=== PATIENT | female | born 1955 | race Caucasian/White ===

== ENCOUNTER → 2016-08-15 | Outpatient (CLI) | payer OTHER ==
--- NOTE | 2016-08-16 05:49 | REP ---
Clinical: Pain. Technique: Internal rotation, external rotation, and Y view. Findings: Degenerative changes include cortical irregularities and subtle spurring at the acromioclavicular joint level as well as very minimal cortical irregularity involving the greater tuberosity of the humeral head. No significant osteophytosis, periarticular calcifications, or subacromial joint space narrowing is appreciated. No acute or healed fracture. Impression: Mild arthritic degenerative changes. Signed by Larry Hurd MD 08/16/2016 05:40 A
== END ==
LOC: M CLY 14:52
PROVIDERS: ATTEND Nurse Practitioner
DX: M19.011 Primary osteoarthritis, right shoulder (principal); M25.511 Pain in right shoulder

== ENCOUNTER → 2016-08-23 | Outpatient (CLI) | payer OTHER ==
--- NOTE | 2016-08-23 17:03 | REPMRS ---
Patient History The patient states she has not had a clinical breast exam in over a year. Patient is postmenopausal. Family history of endometrial cancer in maternal aunt and breast cancer in maternal cousin under age 50. Digital Woman Screen Mammo: August 23, 2016 - Exam #: [id number] Bilateral CC and MLO view(s) were taken. Technologist: Patrizia Cruz, Technologist Prior study comparison: August 05, 2015, digital woman screen mammo performed at [facility]. May 15, 2014, digital woman screen mammo performed at [facility] to [facility]. FINDINGS: There are scattered fibroglandular densities. There has been no change in the appearance of the mammogram from the prior studies. There is a mild amount of scattered fibroglandular density which is fairly symmetric. There is no interval development of dominant mass, architectural distortion, or clustered microcalcification suggestive of malignancy. ASSESSMENT: BI-RADS/ACR category 1 mammogram. Negative. Recommendation Routine screening mammogram in 1 year (for women over age 40). This mammogram was interpreted with the aid of an FDA-approved computer-aided dectection system. Electronically Signed By: Gerry Curry MD 08/23/16 [id number]
== END ==
LOC: M WHC 13:50
PROVIDERS: ATTEND Nurse Practitioner
DX: Z12.31 Encounter for screening mammogram for malignant neoplasm of breast (principal); Z78.0 Asymptomatic menopausal state

== ENCOUNTER 2016-08-27 13:40 | Emergency (ER) | payer OTHER ==
[2016-08-27 15:19] LABS: BASO # 0.1 K/mm3 (0.0-0.2); BASO % 0.6 % (0.0-1.0); EOS # 0.1 K/mm3 (0.0-0.50); EOS % 0.5 % (0.0-3.0); LARGE UNSTAINED CELL # 0.1 K/mm3 (0.0-0.4); LARGE UNSTAINED CELL % 0.6 % (0.0-4.0); LYMPH # 1.2 K/mm3 (1.5-4.5); LYMPH % 7.4 % (24.0-44.0); MEAN CORPUSCULAR HGB CONC 33.8 g/dl (32.0-36.5); MEAN CORPUSCULAR VOLUME 82.9 fl (80.0-96.0); MONO # 0.4 K/mm3 (0.0-0.8); MONO % 2.9 % (0.0-5.0); NEUTROPHILS % 87.9 % (36.0-66.0); PLATELET COUNT, AUTOMATED 321 k/mm3 (150-450); RED CELL DISTRIBUTION WIDTH 12.7 % (11.5-14.5); WHITE BLOOD COUNT 14.7 K/mm3 (4.0-10.0)
[2016-08-27 15:29] LABS: ALBUMIN 3.8 GM/DL (3.2-5.2); ALBUMIN/GLOBULIN RATIO 1.19 (1.00-1.93); ANION GAP 7 MEQ/L (8-16); BILIRUBIN,DIRECT 0.3 MG/DL (0.0-0.2); BILIRUBIN,TOTAL 0.5 MG/DL (0.2-1.0); BLOOD UREA NITROGEN 14 MG/DL (7-18); CALCIUM LEVEL 8.8 MG/DL (8.5-10.1); CARBON DIOXIDE LEVEL 30 MEQ/L (21-32); CHLORIDE LEVEL 104 MEQ/L (98-107); CREATININE FOR GFR 1.07 MG/DL (0.55-1.02); GLOMERULAR FILTRATION RATE 55.9 (>51); GLUCOSE, FASTING 118 MG/DL (70-105); SODIUM LEVEL 141 MEQ/L (136-145)
[2016-08-27 15:36] LABS: INR 0.91
--- NOTE | 2016-08-27 15:53 | ECGEPIP ---
Stationary ECG Study [facility] - ED Test Date: 2016-08-27 Pat Name: AUTUMN FERRIS Department: Room: - Gender: F [employer]: rn : 1955 Requested By: JAY Marin Order Number: [id number] Reading MD: Manju Self Measurements Intervals [place] Rate: 94 P: 43 GA: 150 QRS: -1 QRSD: 93 T: 44 QT: 364 QTc: 457 Interpretive Statements SINUS RHYTHM NONSPECIFIC ST & T-WAVE ABNORMALITY NO PRIOR FOR COMPARISON Electronically Signed On 08-27-2016 15:52:39 EST by Manju Self
--- NOTE | 2016-08-27 19:10 | EDDOCDS ---
Physician Documentation [facility] Name: Margarita Benites Age: 61 yrs Sex: Female : 1955 Arrival Date: 08/27/2016 Time: 13:40 Bed 6 Private MD: Disposition: 08/27/16 18:46 Discharged to Home/Self Care. Impression: Chest pain, unspecified. - Condition is Stable. - Discharge Instructions: Nonspecific Chest Pain. - Prescriptions for Aspirin 81 mg - take 1 tablet by ORAL route once daily; 90 tablet. - Medication Reconciliation, Local Pharmacy Hours form. - Follow up: Dmitriy Del Rosario MD; When: Call to arrange an appointment; Reason: Further diagnostic work-up, Recheck today's complaints, Continuance of care. Follow up: Private Physician; When: 4 - 5 days; Reason: Recheck today's complaints, Continuance of care. - Problem is new. - Symptoms are unchanged. Historical: - Allergies: no known allergies; - Home Meds: 1. PreserVision AREDS 2 [id number]-mg oral cap daily - PMHx: none; - PSHx: ; Appendectomy; - Social history: No barriers to communication noted, The patient speaks fluent Italian, Speaks appropriately for age, Smoking status: Patient states former smoker of tobacco. - Family history: Not pertinent. - : The pt / caregiver states he / she is not on anticoagulants. Home medication list is obtained from the patient. - Exposure Risk Screening:: None identified. Vital Signs: 08/27 13:50 BP 158 / 77 (auto/); ead 13:52 Pulse 104 MON; Pulse Ox 94% on R/A; ead 14:20 BP 144 / 67 (auto/); ttb 14:21 Pulse 94 MON; Pulse Ox 94% ; ttb 14:35 Pulse 90 MON; Pulse Ox 95% ; ttb 14:35 BP 138 / 65 (auto/); ttb 14:50 Pulse 96 MON; Pulse Ox 97% ; ttb 14:50 BP 172 / 70 (auto/); ttb 15:05 BP 128 / 58 (auto/); ttb 15:05 Pulse 86 MON; Resp 18; Pulse Ox 97% on R/A; Pain 1/10; ttb 15:10 Temp 98.1(TE); Weight 89.81 kg / 198 lbs; Height 5 ft. 2 in. (157.48 cm); ttb 16:20 Pulse 84 MON; Pulse Ox 97% ; ttb 16:20 BP 142 / 68 (auto/); ttb 16:35 Pulse 86 MON; Pulse Ox 96% ; ttb 16:35 BP 134 / 61 (auto/); ttb 16:50 Pulse 66 MON; Pulse Ox 97% ; ttb 16:50 BP 151 / 65 (auto/); ttb 17:04 Pulse 66 MON; Pulse Ox 98% ; ttb 17:05 BP 127 / 65 (auto/); ttb 17:20 BP 135 / 73 (auto/); ttb 17:21 Pulse 76 MON; Pulse Ox 96% ; ttb 17:35 BP 138 / 71 (auto/); ttb 17:36 Pulse 80 MON; Pulse Ox 95% ; ttb 17:50 BP 125 / 72 (auto/); ttb 17:50 Pulse 78 MON; Pulse Ox 96% ; ttb 18:05 BP 122 / 70 (auto/); ttb 18:06 Pulse 78 MON; Pulse Ox 96% ; ttb 18:19 Pulse 60 MON; Pulse Ox 97% ; ttb 18:20 BP 150 / 72 (auto/); ttb 18:35 Pulse 66 MON; Pulse Ox 98% ; ttb 18:35 BP 138 / 63 (auto/); ttb 18:49 Pulse 80 MON; Resp 18 S; Temp 98.1(TE); Pulse Ox 98% on R/A; Pain 0/10; ttb 18:50 BP 146 / 70 (auto/); ttb 15:10 Body Mass Index 36.21 (89.81 kg, 157.48 cm) ttb MDM: 13:45 ECG WITH READING ER PHYS+CARDIAG ordered. EDMS 14:58 NS 0.9% 1000 ml IV at 100 mL/hr continuous ordered. ke 14:58 [employer] Roofing Estimator/Pulse Ox/q 30 min VS ordered. ke 14:58 IV Saline Lock ordered. ke 14:58 Rhythm Strip to chart ordered. ke 14:58 Undress patient appropriately for examination ordered. ke 14:59 portable chest Ordered. EDMS 14:59 Basic Metabolic Profile Ordered. EDMS 14:59 CBC with Diff Ordered. EDMS 14:59 Cardiac Injury Profile Ordered. EDMS 15:00 Prothrombin Time Profile\E\INR Ordered. EDMS 15:00 Troponin Ordered. EDMS 15:00 Lipase Ordered. EDMS 15:00 Amylase Ordered. EDMS 15:00 Liver Profile Ordered. EDMS 15:43 Basic Metabolic Profile Reviewed. ke 15:43 CBC with Diff Reviewed. ke 15:43 Liver Profile Reviewed. ke 15:43 Cardiac Injury Profile Reviewed. ke 15:43 Prothrombin Time Profile\E\INR Reviewed. ke 15:43 Troponin Reviewed. ke 15:43 Lipase Reviewed. ke 15:43 Amylase Reviewed. ke 15:44 Redraw CIP &Troponin (put time in details section) ordered. ke 15:44 Repeat EKG (put time details section) ordered. ke 15:46 Redraw CIP &Troponin (put time in details section) complete. deg 15:46 Repeat EKG (put time details section) complete. deg 15:47 ECG WITH READING ER PHYS ordered. EDMS 15:47 CARDIAC MARKER PANEL Ordered. EDMS 16:40 Financial registration complete. zo 17:22 [facility] Payment Agreement was scanned into [employer] and attached to record. zo 18:42 CARDIAC MARKER PANEL Reviewed. ke 18:42 EKG-ADULT Reviewed. ke Administered Medications: 15:08 Drug: NS 0.9% 1000 ml [sodium chloride 0.9 % intravenous solution] Route: IV; Rate: 100 ttb mL/hr; Site: left antecubital; 18:00 Follow up: Response: No Adverse Reaction; IV Status: Completed infusion; IV Intake: ttb 1000ml Signatures: Dispatcher [employer] EDSamantha Olsen, Mold Parter Unit deg Wild Flores FNP FNP ke Olin, Zoeann zo Conner, Teresa RN RN Betsy Montanez,RN RN macho The chart was reviewed and I authenticate all verbal orders and agree with the evaluation and treatment provided.Attachments: 17:22 [facility] Payment Agreement zo [id number]
--- NOTE | 2016-08-27 19:10 | EDDOCDS ---
Nurse's Notes [facility] Name: Margarita Benites Age: 61 yrs Sex: Female : 1955 Arrival Date: 08/27/2016 Time: 13:40 Bed 6 Private MD: Diagnosis: Chest pain, unspecified Presentation: 08/27 13:44 Presenting complaint: EMS states: pt c/o chest pain since 11 this morning. EMS gave 1 ead SL nitiro en route, pt reports relief. Pt also reports epigastric pain after eating soto this morning. Pt arrives on non-rebreather, pt was 100% on 02. Pt received 324 mg aspirin per EMS. Aspirin was taken DATA LIBRARIAN. Transition of care: Patient was received from [facility]. 13:44 Acuity: MARYSE Level 3 ead 13:44 Method Of Arrival: Ambulance ead 13:44 Presenting complaint: EMS states: pt has 20 gauge IV to left AC. Blood glucose of 136. ead Care prior to arrival: See EMS report. 13:50 Adult Sepsis Screening: Suicide/Homicide risk assessment- the patient denies having any ead suicidal and/or homicidal ideations and does not present with any other emotional, behavioral or mental health complaints. 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 13:55 Adult Sepsis Screening: The patient does not have new or worsening altered mentation. ead Patient's respiratory rate is less than 22. Systolic blood pressure is greater than 100. Patient has a qSOFA score of 0- Negative Sepsis Screen. Triage Assessment: 13:50 General: Appears in no apparent distress, well nourished, well groomed, Behavior is ead anxious, appropriate for age, cooperative. Pain: Location: chest Pain currently is 1 out of 10 on a pain scale. At worst was 10 out of 10 on a pain scale. The patient is triaged at the bedside. See Assessment in Nurses Notes section of ED record. Neurological: Level of Consciousness is awake, alert, Oriented to person, place, time. Neurological: Reports dizziness. Cardiovascular: Chest pain is described as Pain is 1 out of 10 on a pain scale. radiates Does not radiate. episodes are continuous began 3 hours prior to arrival. Respiratory: Reports shortness of breath. GI: Reports epigastric pain, Denies nausea, vomiting. Derm: Skin is pink, warm & dry. 19:08 HIV screening NA for this visit Offered previously. ttb Historical: - Allergies: no known allergies; - Home Meds: 1. PreserVision AREDS 2 [id number] yy-tvxj-dt-mg oral cap daily - PMHx: none; - PSHx: ; Appendectomy; - Social history: No barriers to communication noted, The patient speaks fluent Guyanese, Speaks appropriately for age, Smoking status: Patient states former smoker of tobacco. - Family history: Not pertinent. - : The pt / caregiver states he / she is not on anticoagulants. Home medication list is obtained from the patient. - Exposure Risk Screening:: None identified. Screenin:53 Screening information is obtained from the patient. Fall risk: No risks identified. ead Assistance ADL's: requires no assistance with activities of daily living. Abuse/DV Screen: The patient / caregiver reports he/she is: not in a situation that causes fear, pain or injury. Nutritional screening: No deficits noted. Advance Directives: Currently, there is no health care proxy. There is no active DNR order. There is no living will. There is no Power of Treatment Plant Operator. home support is adequate. Assessment: 14:45 General: Appears in no apparent distress, comfortable, Behavior is appropriate for age, ttb cooperative, pleasant. Pain: Location: mid chest 1/10 Pain does not radiate. Neurological: Level of Consciousness is awake, alert, Oriented to person, place, time, Speech is normal, Facial symmetry appears normal. Cardiovascular: Heart tones S1 S2 present Rhythm is sinus rhythm Chest pain is described as mild. Respiratory: No deficits noted. Airway is patent Respiratory effort is even, unlabored, Breath sounds are clear bilaterally. Denies cough, shortness of breath. GI: Denies nausea, vomiting, pain. Derm: Skin is normal. Injury Description: No known injury. 15:45 Reassessment: Patient appears in no apparent distress at this time. Patient denies pain ttb at this time. Patient states feeling better. Patient states symptoms have improved. pt resting on stretcher. Family at bedside.. Cardiovascular: Rhythm is sinus rhythm Chest pain is denied. 16:45 Reassessment: Patient appears in no apparent distress at this time. Patient denies pain ttb at this time. Patient states feeling better. Patient states symptoms have improved. pt resting on stretcher.. Adult Sepsis Screening: The patient does not have new or worsening altered mentation. Patient's respiratory rate is less than 22. Systolic blood pressure is greater than 100. Patient has a qSOFA score of 0- Negative Sepsis Screen. Neurological: Level of Consciousness is awake, alert. Cardiovascular: Rhythm is sinus rhythm. Respiratory: No deficits noted. Airway is patent Respiratory effort is even, unlabored. 17:45 Reassessment: Patient appears in no apparent distress at this time. Patient denies pain ttb at this time. Patient states feeling better. Patient states symptoms have improved. pt continues to rest on stretcher. Pt to be redrawn at 1800.. Neurological: Level of Consciousness is awake, alert. Cardiovascular: Rhythm is sinus rhythm Chest pain is denied. Respiratory: Airway is patent. GI: Denies nausea, vomiting. 18:45 Reassessment: Patient appears in no apparent distress at this time. Patient denies pain ttb at this time. Patient states feeling better. Patient states symptoms have improved. pt states she is ready for DC. NAD noted. Pt aware of impending discharge. SR on monitor. 18:45 Adult Sepsis Screening: The patient does not have new or worsening altered mentation. ttb Patient's respiratory rate is less than 22. Systolic blood pressure is greater than 100. Patient has a qSOFA score of 0- Negative Sepsis Screen. Cardiovascular: Rhythm is sinus rhythm Chest pain is denied. Respiratory: Airway is patent Respiratory effort is even, unlabored, Denies cough, shortness of breath. GI: Denies nausea, vomiting. 19:00 General: pt given DC instructions and is ready for discharge at this time.. ttb 19:00 Cardiovascular: Chest pain is denied. Respiratory: Airway is patent Respiratory effort ttb is even, unlabored. Vital Signs: 13:50 BP 158 / 77 (auto/); ead 13:52 Pulse 104 MON; Pulse Ox 94% on R/A; ead 14:20 BP 144 / 67 (auto/); ttb 14:21 Pulse 94 MON; Pulse Ox 94% ; ttb 14:35 Pulse 90 MON; Pulse Ox 95% ; ttb 14:35 BP 138 / 65 (auto/); ttb 14:50 Pulse 96 MON; Pulse Ox 97% ; ttb 14:50 BP 172 / 70 (auto/); ttb 15:05 BP 128 / 58 (auto/); ttb 15:05 Pulse 86 MON; Resp 18; Pulse Ox 97% on R/A; Pain 1/10; ttb 15:10 Temp 98.1(TE); Weight 89.81 kg; Height 5 ft. 2 in. (157.48 cm); ttb 16:20 Pulse 84 MON; Pulse Ox 97% ; ttb 16:20 BP 142 / 68 (auto/); ttb 16:35 Pulse 86 MON; Pulse Ox 96% ; ttb 16:35 BP 134 / 61 (auto/); ttb 16:50 Pulse 66 MON; Pulse Ox 97% ; ttb 16:50 BP 151 / 65 (auto/); ttb 17:04 Pulse 66 MON; Pulse Ox 98% ; ttb 17:05 BP 127 / 65 (auto/); ttb 17:20 BP 135 / 73 (auto/); ttb 17:21 Pulse 76 MON; Pulse Ox 96% ; ttb 17:35 BP 138 / 71 (auto/); ttb 17:36 Pulse 80 MON; Pulse Ox 95% ; ttb 17:50 BP 125 / 72 (auto/); ttb 17:50 Pulse 78 MON; Pulse Ox 96% ; ttb 18:05 BP 122 / 70 (auto/); ttb 18:06 Pulse 78 MON; Pulse Ox 96% ; ttb 18:19 Pulse 60 MON; Pulse Ox 97% ; ttb 18:20 BP 150 / 72 (auto/); ttb 18:35 Pulse 66 MON; Pulse Ox 98% ; ttb 18:35 BP 138 / 63 (auto/); ttb 18:49 Pulse 80 MON; Resp 18 S; Temp 98.1(TE); Pulse Ox 98% on R/A; Pain 0/10; ttb 18:50 BP 146 / 70 (auto/); ttb 15:10 Body Mass Index 36.21 (89.81 kg, 157.48 cm) ttb Vitals: 13:40 Log In Time N/A - ambulance arrival. ead ED Course: 13:41 Patient visited by Samantha Cota, Housing Relocation. deg 13:41 Patient moved to Waiting deg 13:42 Eva Cason,RN is Primary Nurse. deg 13:42 Patient moved to 6 deg 13:48 Triage Initiated ead 13:53 The patient / caregiver is instructed regarding the plan of care and ED course. Cardiac ead monitor on. Pulse ox on. NIBP on. 13:55 Patient visited by Betsy Chappell RN. ead 13:59 EKG done. (by ED staff). Reviewed by Lia Garcias MD. rn1 14:37 Wild Flores FNP is PHCP. ke 14:37 Patient visited by Wild Flores FNP. ke 14:37 Patient visited by Wild Flores FNP. ke 15:05 Accompanied by Family Member, Patient has correct armband on for positive ttb identification. Placed in gown. Bed in low position. Call light in reach. Side rails up X2. bus monitor on. Pulse ox on. NIBP on. 15:05 Maintain field IV. Dressing intact. Good blood return noted. Site clean & dry. Gauge & ttb site: 20LAC. Labs drawn. (by ED staff). 15:11 Patient visited by Tammi Barillas RN. ttb 15:42 Patient visited by Wild Flores FNP. ke 15:58 Primary Nurse role handed off by Eva Cason RN deg 16:04 EKG-ADULT Returned. EDMS 16:08 Patient visited by Wild Flores FNP. ke 16:44 Patient visited by Wild Flores FNP. ke 17:15 Patient visited by Wild Flores FNP. ke 17:22 [facility] Payment Agreement was scanned into [employer] and attached to record. zo 17:47 Patient visited by Wild Flores FNP. ke 18:01 CARDIAC MARKER PANEL Sent. ttb 18:16 Patient visited by Pratibha Verdin RN. kc3 18:19 EKG done. (by ED staff). Reviewed by Wild SIMPSON. rn1 18:42 Patient visited by Wild Flores FNP. ke 18:45 Dmitriy Del Rosario MD is Referral Physician. ke 19:00 Discontinued IV lock intact, bleeding controlled, pressure dressing applied, No ttb redness/swelling at site. No procedures done that require assistance. 19:04 Patient visited by Fernadno Souza PCA. kb5 Administered Medications: 15:08 Drug: NS 0.9% 1000 ml [sodium chloride 0.9 % intravenous solution] Route: IV; Rate: 100 ttb mL/hr; Site: left antecubital; 18:00 Follow up: Response: No Adverse Reaction; IV Status: Completed infusion; IV Intake: ttb 1000ml Intake: 18:00 IV: 1000.00ml; Total: 1000.00ml. ttb Order Results: Lab Order: Basic Metabolic Profile; SPEC'M 08/27/16 13:53 Test: GLUCOSE, FASTING; Value: 118; Range: 70-105; Abnormal: Above high normal; Units: MG/DL; Status: F Test: BLOOD UREA NITROGEN; Value: 14; Range: 7-18; Units: MG/DL; Status: F Test: CREATININE FOR GFR; Value: 1.07; Range: 0.55-1.02; Abnormal: Above high normal; Units: MG/DL; Status: F Test: GLOMERULAR FILTRATION RATE; Value: 55.9; Range: >51; Status: F Test: SODIUM LEVEL; Value: 141; Range: 136-145; Units: MEQ/L; Status: F Test: POTASSIUM SERUM; Value: 4.0; Range: 3.5-5.1; Units: MEQ/L; Status: F Test: CHLORIDE LEVEL; Value: 104; Range: 98-107; Units: MEQ/L; Status: F Test: CARBON DIOXIDE LEVEL; Value: 30; Range: 21-32; Units: MEQ/L; Status: F Test: ANION GAP; Value: 7; Range: 8-16; Abnormal: Below low normal; Units: MEQ/L; Status: F Test: CALCIUM LEVEL; Value: 8.8; Range: 8.5-10.1; Units: MG/DL; Status: F Test Note: ; Units are mL/min/1.73 m2 Chronic Kidney Disease Staging per NKF: Stage I & II GFR >=60 Normal to Mildly Decreased Stage III GFR 30-59 Moderately Decreased Stage IV GFR 15-29 Severely Decreased Stage V GFR <15 Very Little GFR Left ESRD GFR <15 on [employer] WRAPPER Lab Order: CBC with Diff; SPEC'M 08/27/16 13:53 Test: WHITE BLOOD COUNT; Value: 14.7; Range: 4.0-10.0; Abnormal: Above high normal; Units: K/mm3; Status: F Test: RED BLOOD COUNT; Value: 5.14; Range: 4.00-5.40; Units: M/mm3; Status: F Test: HEMOGLOBIN; Value: 14.4; Range: 12.0-16.0; Units: g/dl; Status: F Test: HEMATOCRIT; Value: 42.6; Range: 36.0-47.0; Units: %; Status: F Test: MEAN CORPUSCULAR VOLUME; Value: 82.9; Range: 80.0-96.0; Units: fl; Status: F Test: MEAN CORPUSCULAR HEMOGLOBIN; Value: 28.0; Range: 27.0-33.0; Units: pg; Status: F Test: MEAN CORPUSCULAR HGB CONC; Value: 33.8; Range: 32.0-36.5; Units: g/dl; Status: F Test: RED CELL DISTRIBUTION WIDTH; Value: 12.7; Range: 11.5-14.5; Units: %; Status: F Test: PLATELET COUNT, AUTOMATED; Value: 321; Range: 150-450; Units: k/mm3; Status: F Test: NEUTROPHILS %; Value: 87.9; Range: 36.0-66.0; Abnormal: Above high normal; Units: %; Status: F Test: LYMPH %; Value: 7.4; Range: 24.0-44.0; Abnormal: Below low normal; Units: %; Status: F Test: MONO %; Value: 2.9; Range: 0.0-5.0; Units: %; Status: F Test: EOS %; Value: 0.5; Range: 0.0-3.0; Units: %; Status: F Test: BASO %; Value: 0.6; Range: 0.0-1.0; Units: %; Status: F Test: LARGE UNSTAINED CELL %; Value: 0.6; Range: 0.0-4.0; Units: %; Status: F Test: NEUTROPHILS #; Value: 13.0; Range: 1.8-7.7; Abnormal: Above high normal; Units: K/mm3; Status: F Test: LYMPH #; Value: 1.2; Range: 1.5-4.5; Abnormal: Below low normal; Units: K/mm3; Status: F Test: MONO #; Value: 0.4; Range: 0.0-0.8; Units: K/mm3; Status: F Test: EOS #; Value: 0.1; Range: 0.0-0.50; Units: K/mm3; Status: F Test: BASO #; Value: 0.1; Range: 0.0-0.2; Units: K/mm3; Status: F Test: LARGE UNSTAINED CELL #; Value: 0.1; Range: 0.0-0.4; Units: K/mm3; Status: F Lab Order: Cardiac Injury Profile; [facility] 08/27/16 13:53 Test: CPK CREATINE PHOSPHOKINASE; Value: 57; Range: 26-192; Units: U/L; Status: F Test: CK-MB VALUE MASS; Value: 1.0; Range: 0.0-3.6; Units: NG/ML; Status: F Test: MB/CK RELATIVE INDEX; Value: 1.75; Range: < OR =4; Status: F Test Note: ; DIAGNOSIS CRITERIA MMB ng/ml Relative Index (RI) NON-AMI < or = 5 N/A BROOKS ZONE > 5 < or = 4 AMI > 5 > 4 Lab Order: Prothrombin Time Profile\E\INR; [facility] 13:53 Test: PROTHROMBIN TIME; Value: 12.4; Range: 12.3-14.5; Units: SECONDS; Status: F Test: INR; Value: 0.91; Status: F Test Note: ; THERAPUTIC HUMAN INR VALUES INDICATIONS NORMAL RANGES PROPHYLAXIS/TREATMENT OF: VENOUS THROMBOSIS 2.0-3.0 PULMONARY EMBOLISM 2.0-3.0 PREVENTION OF SYSTEMIC EMBOLISM FROM: TISSUE HEART VALVES 2.0-3.0 ACUTE MYOCARDIAL INFARCTION 2.0-3.0 VALVULAR HEART DISEASE 2.0-3.0 ATRIAL FIBRILLATION 2.0-3.0 MECHANICAL VALVES(HIGH RISK) 2.5-3.5 RECURRENT MYOCARDIAL INFARCTION 2.5-3.5 Lab Order: Troponin; [facility] 08/27/16 13:53 Test: TROPONIN I; Value: < 0.02; Range: < 0.10; Units: NG/ML; Status: F Test Note: ; Troponin I Reference Interval for Win[employer] LOCI: 99th Percentile= 0.00-0.045 ng/ml Risk Stratification: <= 0.10 ng/ml Decreased Risk for Adverse Clinical Events. 0.10-1.50 ng/ml Increased Risk for Adverse Clinical Events. Evaluation of additional criterion and/or repeat testing in 2-6 hours is suggested to rule out myocardial damage. >= 1.50 ng/ml Indicative of Myocardial Injury. Lab Order: Lipase; [facility] 08/27/16 13:53 Test: LIPASE; Value: 164; Range: 73-393; Units: U/L; Status: F Lab Order: Amylase; [facility] 08/27/16 13:53 Test: AMYLASE; Value: 71; Range: 25-115; Units: U/L; Status: F Lab Order: Liver Profile; [facility] 08/27/16 13:53 Test: AST/SGOT; Value: 96; Range: 15-37; Abnormal: Above high normal; Units: U/L; Status: F Test: ALT/SGPT; Value: 59; Range: 12-78; Units: U/L; Status: F Test: ALKALINE PHOSPHATASE; Value: 74; Range: 45-117; Units: U/L; Status: F Test: BILIRUBIN,TOTAL; Value: 0.5; Range: 0.2-1.0; Units: MG/DL; Status: F Test: BILIRUBIN,DIRECT; Value: 0.3; Range: 0.0-0.2; Abnormal: Above high normal; Units: MG/DL; Status: F Test: TOTAL PROTEIN; Value: 7.0; Range: 6.4-8.2; Units: GM/DL; Status: F Test: ALBUMIN; Value: 3.8; Range: 3.2-5.2; Units: GM/DL; Status: F Test: ALBUMIN/GLOBULIN RATIO; Value: 1.19; Range: 1.00-1.93; Status: F Lab Order: CARDIAC MARKER PANEL; [facility] 08/27/16 17:55 Test: CPK CREATINE PHOSPHOKINASE; Value: 61; Range: 26-192; Units: U/L; Status: F Test: CK-MB VALUE MASS; Value: 1.0; Range: 0.0-3.6; Units: NG/ML; Status: F Test: MB/CK RELATIVE INDEX; Value: 1.63; Range: < OR =4; Status: F Test: TROPONIN I; Value: < 0.02; Range: < 0.10; Units: NG/ML; Status: F Test Note: ; DIAGNOSIS CRITERIA MMB ng/ml Relative Index (RI) NON-AMI < or = 5 N/A BROOKS ZONE > 5 < or = 4 AMI > 5 > 4 Radiology Order: EKG-ADULT Test: EKG-ADULT REASON FOR EXAMINATION: Chest Pain; Stationary ECG Study; [facility] - ED; ; Test Date: 2016-08-27; Pat Name: MARGARITA BENITES Department:; Room: -; Gender: F Wearing Apparel Assembler: rn; : 1955 Requested By: LIA Marin; Order Number: [id number] Reading MD: Manju Self; Measurements; Intervals [place]; Rate: 94 P: 43; [place]: 150 QRS: -1; QRSD: 93 T: 44; QT: 364; QTc: 457; Interpretive Statements; SINUS RHYTHM; NONSPECIFIC ST T-WAVE ABNORMALITY; NO PRIOR FOR COMPARISON; Electronically Signed On 08-27-2016 15:52:39 EST by Manju Self; Outcome: 18:46 Discharge ordered by Provider. ke 19:00 Discharge Assessment: Patient awake, alert and oriented x 3. No cognitive and/or ttb functional deficits noted. Patient verbalized understanding of disposition instructions. Patient awake and alert. patient administered narcotics - no. The following High Risk Discharge criteria are identified: None. Discharged to home ambulatory, with family. Condition: good Condition: stable Condition: improved. Discharge instructions given to patient, family, Instructed on discharge instructions, follow up and referral plans. medication usage, Demonstrated understanding of instructions, medications, Pt was receptive of discharge instructions/ teaching. Prescriptions given X 1. No special radiology studies were completed. Property :Personal belongings accompany Pt. 19:08 Patient left the ED. ttb Signatures: Dispatcher [employer] EDSamantha Olsen, Housing Relocation Unit deg Wild Flores, COAL SCREENER COAL SCREENER Nora Pratt Kristopher, CITY ENGINEER CITY ENGINEER kb5 Tammi Barillas RN RN Betsy Montanez,MIGUE RN ead Lobito Wilson rn1 Pratibha Verdin,MIGUE RN kc3 IDALIA
--- NOTE | 2016-08-28 11:24 | REP ---
Portable chest, single AP view: The lung becerra are clear. The cardiac size is normal The ayala, mediastinum, and bony thorax are unremarkable. Impression: Negative portable chest. Signed by Reji Brunson MD 08/27/2016 03:25 P
--- NOTE | 2016-08-28 20:46 | ECGEPIP ---
Stationary ECG Study [facility] - ED Test Date: 2016-08-27 Pat Name: AUTUMN FERRIS Department: Room: - Gender: F Tree Driller: jeovany : 1955 Requested By: RHINA SIMSPON Order Number: [id number] Reading MD: Manju Self Measurements Intervals [place] Rate: 65 P: 1 IN: 148 QRS: 3 QRSD: 90 T: 18 QT: 416 QTc: 434 Interpretive Statements SINUS RHYTHM NSTTW ABNORMALITY DECREASED RATE 08/27/16 13:57 Electronically Signed On 08-28-2016 20:46:09 EST by Manju Self
--- NOTE | 2016-08-29 20:10 | EDDOCDS ---
Physician Documentation [facility] Name: Margarita Benites Age: 61 yrs Sex: Female : 1955 Arrival Date: 08/27/2016 Time: 13:40 Bed 6 Private MD: Disposition: 08/27/16 18:46 Discharged to Home/Self Care. Impression: Chest pain, unspecified. - Condition is Stable. - Discharge Instructions: Nonspecific Chest Pain. - Prescriptions for Aspirin 81 mg - take 1 tablet by ORAL route once daily; 90 tablet. - Medication Reconciliation, Local Pharmacy Hours form. - Follow up: Dmitriy Del Rosario MD; When: Call to arrange an appointment; Reason: Further diagnostic work-up, Recheck today's complaints, Continuance of care. Follow up: Private Physician; When: 4 - 5 days; Reason: Recheck today's complaints, Continuance of care. - Problem is new. - Symptoms are unchanged. Historical: - Allergies: no known allergies; - Home Meds: 1. PreserVision AREDS 2 [id number] on-izun-ga-mg oral cap daily - PMHx: none; - PSHx: ; Appendectomy; - Social history: No barriers to communication noted, The patient speaks fluent Swedish, Speaks appropriately for age, Smoking status: Patient states former smoker of tobacco. - Family history: Not pertinent. - : The pt / caregiver states he / she is not on anticoagulants. Home medication list is obtained from the patient. - Exposure Risk Screening:: None identified. Vital Signs: 08/27 13:50 BP 158 / 77 (auto/); ead 13:52 Pulse 104 MON; Pulse Ox 94% on R/A; ead 14:20 BP 144 / 67 (auto/); ttb 14:21 Pulse 94 MON; Pulse Ox 94% ; ttb 14:35 Pulse 90 MON; Pulse Ox 95% ; ttb 14:35 BP 138 / 65 (auto/); ttb 14:50 Pulse 96 MON; Pulse Ox 97% ; ttb 14:50 BP 172 / 70 (auto/); ttb 15:05 BP 128 / 58 (auto/); ttb 15:05 Pulse 86 MON; Resp 18; Pulse Ox 97% on R/A; Pain 1/10; ttb 15:10 Temp 98.1(TE); Weight 89.81 kg / 198 lbs; Height 5 ft. 2 in. (157.48 cm); ttb 16:20 Pulse 84 MON; Pulse Ox 97% ; ttb 16:20 BP 142 / 68 (auto/); ttb 16:35 Pulse 86 MON; Pulse Ox 96% ; ttb 16:35 BP 134 / 61 (auto/); ttb 16:50 Pulse 66 MON; Pulse Ox 97% ; ttb 16:50 BP 151 / 65 (auto/); ttb 17:04 Pulse 66 MON; Pulse Ox 98% ; ttb 17:05 BP 127 / 65 (auto/); ttb 17:20 BP 135 / 73 (auto/); ttb 17:21 Pulse 76 MON; Pulse Ox 96% ; ttb 17:35 BP 138 / 71 (auto/); ttb 17:36 Pulse 80 MON; Pulse Ox 95% ; ttb 17:50 BP 125 / 72 (auto/); ttb 17:50 Pulse 78 MON; Pulse Ox 96% ; ttb 18:05 BP 122 / 70 (auto/); ttb 18:06 Pulse 78 MON; Pulse Ox 96% ; ttb 18:19 Pulse 60 MON; Pulse Ox 97% ; ttb 18:20 BP 150 / 72 (auto/); ttb 18:35 Pulse 66 MON; Pulse Ox 98% ; ttb 18:35 BP 138 / 63 (auto/); ttb 18:49 Pulse 80 MON; Resp 18 S; Temp 98.1(TE); Pulse Ox 98% on R/A; Pain 0/10; ttb 18:50 BP 146 / 70 (auto/); ttb 15:10 Body Mass Index 36.21 (89.81 kg, 157.48 cm) ttb MDM: 13:45 ECG WITH READING ER PHYS+CARDIAG ordered. EDMS 14:58 NS 0.9% 1000 ml IV at 100 mL/hr continuous ordered. ke 14:58 Client Services Associate/Pulse Ox/q 30 min VS ordered. ke 14:58 IV Saline Lock ordered. ke 14:58 Rhythm Strip to chart ordered. ke 14:58 Undress patient appropriately for examination ordered. ke 14:59 portable chest Ordered. EDMS 14:59 Basic Metabolic Profile Ordered. EDMS 14:59 CBC with Diff Ordered. EDMS 14:59 Cardiac Injury Profile Ordered. EDMS 15:00 Prothrombin Time Profile\E\INR Ordered. EDMS 15:00 Troponin Ordered. EDMS 15:00 Lipase Ordered. EDMS 15:00 Amylase Ordered. EDMS 15:00 Liver Profile Ordered. EDMS 15:43 Basic Metabolic Profile Reviewed. ke 15:43 CBC with Diff Reviewed. ke 15:43 Liver Profile Reviewed. ke 15:43 Cardiac Injury Profile Reviewed. ke 15:43 Prothrombin Time Profile\E\INR Reviewed. ke 15:43 Troponin Reviewed. ke 15:43 Lipase Reviewed. ke 15:43 Amylase Reviewed. ke 15:44 Redraw CIP &Troponin (put time in details section) ordered. ke 15:44 Repeat EKG (put time details section) ordered. ke 15:46 Redraw CIP &Troponin (put time in details section) complete. deg 15:46 Repeat EKG (put time details section) complete. deg 15:47 ECG WITH READING ER PHYS ordered. EDMS 15:47 CARDIAC MARKER PANEL Ordered. EDMS 16:40 Financial registration complete. zo 17:22 [facility] Payment Agreement was scanned into [employer] and attached to record. zo 18:42 CARDIAC MARKER PANEL Reviewed. ke 18:42 EKG-ADULT Reviewed. ke 08/28 11:12 T-Sheet-- Draft Copy was scanned into [employer] and attached to record. gb 11:12 ECG/EKG was scanned into [employer] and attached to record. gb 11:13 Trend VS was scanned into [employer] and attached to record. gb 11:13 Rhythm Strip was scanned into [employer] and attached to record. gb Administered Medications: 08/27 15:08 Drug: NS 0.9% 1000 ml [sodium chloride 0.9 % intravenous solution] Route: IV; Rate: 100 ttb mL/hr; Site: left antecubital; 18:00 Follow up: Response: No Adverse Reaction; IV Status: Completed infusion; IV Intake: ttb 1000ml Signatures: Dispatcher [employer] EDSamantha Olsen, Flash Welder Unit deg Joy Angelo, Reg Reg gb Wild Flores, A AND P MECHANIC A AND P MECHANIC Nora Pratt Teresa, RN RN ttb [place], EmilyRN RN macho The chart was reviewed and I authenticate all verbal orders and agree with the evaluation and treatment provided.Attachments: 17: [facility] Payment Agreement zo 08/28 11:12 T-Sheet-- Draft Copy gb 11:12 ECG/EKG gb Chart Complete MTDD
--- NOTE | 2016-08-29 20:10 | EDDOCDS ---
Physician Documentation [facility] Name: Margarita Benites Age: 61 yrs Sex: Female : 1955 Arrival Date: 08/27/2016 Time: 13:40 Bed 6 Private MD: Disposition: 08/27/16 18:46 Discharged to Home/Self Care. Impression: Chest pain, unspecified. - Condition is Stable. - Discharge Instructions: Nonspecific Chest Pain. - Prescriptions for Aspirin 81 mg - take 1 tablet by ORAL route once daily; 90 tablet. - Medication Reconciliation, Local Pharmacy Hours form. - Follow up: Dmitriy Del Rosario MD; When: Call to arrange an appointment; Reason: Further diagnostic work-up, Recheck today's complaints, Continuance of care. Follow up: Private Physician; When: 4 - 5 days; Reason: Recheck today's complaints, Continuance of care. - Problem is new. - Symptoms are unchanged. Historical: - Allergies: no known allergies; - Home Meds: 1. PreserVision AREDS 2 [id number] [id number] oral cap daily - PMHx: none; - PSHx: ; Appendectomy; - Social history: No barriers to communication noted, The patient speaks fluent Amharic, Speaks appropriately for age, Smoking status: Patient states former smoker of tobacco. - Family history: Not pertinent. - : The pt / caregiver states he / she is not on anticoagulants. Home medication list is obtained from the patient. - Exposure Risk Screening:: None identified. Vital Signs: 08/27 13:50 BP 158 / 77 (auto/); ead 13:52 Pulse 104 MON; Pulse Ox 94% on R/A; ead 14:20 BP 144 / 67 (auto/); ttb 14:21 Pulse 94 MON; Pulse Ox 94% ; ttb 14:35 Pulse 90 MON; Pulse Ox 95% ; ttb 14:35 BP 138 / 65 (auto/); ttb 14:50 Pulse 96 MON; Pulse Ox 97% ; ttb 14:50 BP 172 / 70 (auto/); ttb 15:05 BP 128 / 58 (auto/); ttb 15:05 Pulse 86 MON; Resp 18; Pulse Ox 97% on R/A; Pain 1/10; ttb 15:10 Temp 98.1(TE); Weight 89.81 kg / 198 lbs; Height 5 ft. 2 in. (157.48 cm); ttb 16:20 Pulse 84 MON; Pulse Ox 97% ; ttb 16:20 BP 142 / 68 (auto/); ttb 16:35 Pulse 86 MON; Pulse Ox 96% ; ttb 16:35 BP 134 / 61 (auto/); ttb 16:50 Pulse 66 MON; Pulse Ox 97% ; ttb 16:50 BP 151 / 65 (auto/); ttb 17:04 Pulse 66 MON; Pulse Ox 98% ; ttb 17:05 BP 127 / 65 (auto/); ttb 17:20 BP 135 / 73 (auto/); ttb 17:21 Pulse 76 MON; Pulse Ox 96% ; ttb 17:35 BP 138 / 71 (auto/); ttb 17:36 Pulse 80 MON; Pulse Ox 95% ; ttb 17:50 BP 125 / 72 (auto/); ttb 17:50 Pulse 78 MON; Pulse Ox 96% ; ttb 18:05 BP 122 / 70 (auto/); ttb 18:06 Pulse 78 MON; Pulse Ox 96% ; ttb 18:19 Pulse 60 MON; Pulse Ox 97% ; ttb 18:20 BP 150 / 72 (auto/); ttb 18:35 Pulse 66 MON; Pulse Ox 98% ; ttb 18:35 BP 138 / 63 (auto/); ttb 18:49 Pulse 80 MON; Resp 18 S; Temp 98.1(TE); Pulse Ox 98% on R/A; Pain 0/10; ttb 18:50 BP 146 / 70 (auto/); ttb 15:10 Body Mass Index 36.21 (89.81 kg, 157.48 cm) ttb MDM: 13:45 ECG WITH READING ER PHYS+CARDIAG ordered. EDMS 14:58 NS 0.9% 1000 ml IV at 100 mL/hr continuous ordered. ke 14:58 Bee Tender/Pulse Ox/q 30 min VS ordered. ke 14:58 IV Saline Lock ordered. ke 14:58 Rhythm Strip to chart ordered. ke 14:58 Undress patient appropriately for examination ordered. ke 14:59 portable chest Ordered. EDMS 14:59 Basic Metabolic Profile Ordered. EDMS 14:59 CBC with Diff Ordered. EDMS 14:59 Cardiac Injury Profile Ordered. EDMS 15:00 Prothrombin Time Profile\E\INR Ordered. EDMS 15:00 Troponin Ordered. EDMS 15:00 Lipase Ordered. EDMS 15:00 Amylase Ordered. EDMS 15:00 Liver Profile Ordered. EDMS 15:43 Basic Metabolic Profile Reviewed. ke 15:43 CBC with Diff Reviewed. ke 15:43 Liver Profile Reviewed. ke 15:43 Cardiac Injury Profile Reviewed. ke 15:43 Prothrombin Time Profile\E\INR Reviewed. ke 15:43 Troponin Reviewed. ke 15:43 Lipase Reviewed. ke 15:43 Amylase Reviewed. ke 15:44 Redraw CIP &Troponin (put time in details section) ordered. ke 15:44 Repeat EKG (put time details section) ordered. ke 15:46 Redraw CIP &Troponin (put time in details section) complete. deg 15:46 Repeat EKG (put time details section) complete. deg 15:47 ECG WITH READING ER PHYS ordered. EDMS 15:47 CARDIAC MARKER PANEL Ordered. EDMS 16:40 Financial registration complete. zo 17:22 [facility] into [employer] and attached to record. zo 18:42 CARDIAC MARKER PANEL Reviewed. ke 18:42 EKG-ADULT Reviewed. ke 08/28 11:12 T-Sheet-- Draft Copy was scanned into [employer] and attached to record. gb 11:12 ECG/EKG was scanned into [employer] and attached to record. gb 11:13 Trend VS was scanned into [employer] and attached to record. gb 11:13 Rhythm Strip was scanned into [employer] and attached to record. gb Administered Medications: 08/27 15:08 Drug: NS 0.9% 1000 ml [sodium chloride 0.9 % intravenous solution] Route: IV; Rate: 100 ttb mL/hr; Site: left antecubital; 18:00 Follow up: Response: No Adverse Reaction; IV Status: Completed infusion; IV Intake: ttb 1000ml Signatures: Dispatcher [employer] EDSamantha Olsen, Environmental Sampler Unit deg Joy Angelo, Reg Reg gb Wild Flores, RIVET MACHINE OPERATOR RIVET MACHINE OPERATOR Nora Pratt Teresa, RN RN ttb Dunaway, EmilyRN RN macho The chart was reviewed and I authenticate all verbal orders and agree with the evaluation and treatment provided.Attachments: 17: [facility] zo 08/28 11:12 T-Sheet-- Draft Copy gb 11:12 ECG/EKG gb Chart Complete MTDD
--- NOTE | 2016-08-29 20:10 | EDDOCDS ---
Nurse's Notes [facility] Name: Autumn Benites Age: 61 yrs Sex: Female : 1955 Arrival Date: 08/27/2016 Time: 13:40 Bed 6 Private MD: Diagnosis: Chest pain, unspecified Presentation: 08/27 13:44 Presenting complaint: EMS states: pt c/o chest pain since 11 this morning. EMS gave 1 ead SL nitiro en route, pt reports relief. Pt also reports epigastric pain after eating soto this morning. Pt arrives on non-rebreather, pt was 100% on 02. Pt received 324 mg aspirin per EMS. Aspirin was taken BUSINESS ATTORNEY. Transition of care: Patient was received from [facility]. 13:44 Acuity: MARYSE Level 3 ead 13:44 Method Of Arrival: Ambulance ead 13:44 Presenting complaint: EMS states: pt has 20 gauge IV to left AC. Blood glucose of 136. ead Care prior to arrival: See EMS report. 13:50 Adult Sepsis Screening: Suicide/Homicide risk assessment- the patient denies having any ead suicidal and/or homicidal ideations and does not present with any other emotional, behavioral or mental health complaints. Status: Patient is not a food service specialist or dependent. 13:55 Adult Sepsis Screening: The patient does not have new or worsening altered mentation. ead Patient's respiratory rate is less than 22. Systolic blood pressure is greater than 100. Patient has a qSOFA score of 0- Negative Sepsis Screen. Triage Assessment: 13:50 General: Appears in no apparent distress, well nourished, well groomed, Behavior is ead anxious, appropriate for age, cooperative. Pain: Location: chest Pain currently is 1 out of 10 on a pain scale. At worst was 10 out of 10 on a pain scale. The patient is triaged at the bedside. See Assessment in Nurses Notes section of ED record. Neurological: Level of Consciousness is awake, alert, Oriented to person, place, time. Neurological: Reports dizziness. Cardiovascular: Chest pain is described as Pain is 1 out of 10 on a pain scale. radiates Does not radiate. episodes are continuous began 3 hours prior to arrival. Respiratory: Reports shortness of breath. GI: Reports epigastric pain, Denies nausea, vomiting. Derm: Skin is pink, warm & dry. 19:08 HIV screening NA for this visit Offered previously. ttb Historical: - Allergies: no known allergies; - Home Meds: 1. PreserVision AREDS 2 [id number] oral cap daily - PMHx: none; - PSHx: ; Appendectomy; - Social history: No barriers to communication noted, The patient speaks fluent Australian, Speaks appropriately for age, Smoking status: Patient states former smoker of tobacco. - Family history: Not pertinent. - : The pt / caregiver states he / she is not on anticoagulants. Home medication list is obtained from the patient. - Exposure Risk Screening:: None identified. Screenin:53 Screening information is obtained from the patient. Fall risk: No risks identified. ead Assistance ADL's: requires no assistance with activities of daily living. Abuse/DV Screen: The patient / caregiver reports he/she is: not in a situation that causes fear, pain or injury. Nutritional screening: No deficits noted. Advance Directives: Currently, there is no health care proxy. There is no active DNR order. There is no living will. There is no Power of Perfume And Toilet Water Maker. home support is adequate. Assessment: 14:45 General: Appears in no apparent distress, comfortable, Behavior is appropriate for age, ttb cooperative, pleasant. Pain: Location: mid chest 1/10 Pain does not radiate. Neurological: Level of Consciousness is awake, alert, Oriented to person, place, time, Speech is normal, Facial symmetry appears normal. Cardiovascular: Heart tones S1 S2 present Rhythm is sinus rhythm Chest pain is described as mild. Respiratory: No deficits noted. Airway is patent Respiratory effort is even, unlabored, Breath sounds are clear bilaterally. Denies cough, shortness of breath. GI: Denies nausea, vomiting, pain. Derm: Skin is normal. Injury Description: No known injury. 15:45 Reassessment: Patient appears in no apparent distress at this time. Patient denies pain ttb at this time. Patient states feeling better. Patient states symptoms have improved. pt resting on stretcher. Family at bedside.. Cardiovascular: Rhythm is sinus rhythm Chest pain is denied. 16:45 Reassessment: Patient appears in no apparent distress at this time. Patient denies pain ttb at this time. Patient states feeling better. Patient states symptoms have improved. pt resting on stretcher.. Adult Sepsis Screening: The patient does not have new or worsening altered mentation. Patient's respiratory rate is less than 22. Systolic blood pressure is greater than 100. Patient has a qSOFA score of 0- Negative Sepsis Screen. Neurological: Level of Consciousness is awake, alert. Cardiovascular: Rhythm is sinus rhythm. Respiratory: No deficits noted. Airway is patent Respiratory effort is even, unlabored. 17:45 Reassessment: Patient appears in no apparent distress at this time. Patient denies pain ttb at this time. Patient states feeling better. Patient states symptoms have improved. pt continues to rest on stretcher. Pt to be redrawn at 1800.. Neurological: Level of Consciousness is awake, alert. Cardiovascular: Rhythm is sinus rhythm Chest pain is denied. Respiratory: Airway is patent. GI: Denies nausea, vomiting. 18:45 Reassessment: Patient appears in no apparent distress at this time. Patient denies pain ttb at this time. Patient states feeling better. Patient states symptoms have improved. pt states she is ready for DC. NAD noted. Pt aware of impending discharge. SR on monitor. 18:45 Adult Sepsis Screening: The patient does not have new or worsening altered mentation. ttb Patient's respiratory rate is less than 22. Systolic blood pressure is greater than 100. Patient has a qSOFA score of 0- Negative Sepsis Screen. Cardiovascular: Rhythm is sinus rhythm Chest pain is denied. Respiratory: Airway is patent Respiratory effort is even, unlabored, Denies cough, shortness of breath. GI: Denies nausea, vomiting. 19:00 General: pt given DC instructions and is ready for discharge at this time.. ttb 19:00 Cardiovascular: Chest pain is denied. Respiratory: Airway is patent Respiratory effort ttb is even, unlabored. Vital Signs: 13:50 BP 158 / 77 (auto/); ead 13:52 Pulse 104 MON; Pulse Ox 94% on R/A; ead 14:20 BP 144 / 67 (auto/); ttb 14:21 Pulse 94 MON; Pulse Ox 94% ; ttb 14:35 Pulse 90 MON; Pulse Ox 95% ; ttb 14:35 BP 138 / 65 (auto/); ttb 14:50 Pulse 96 MON; Pulse Ox 97% ; ttb 14:50 BP 172 / 70 (auto/); ttb 15:05 BP 128 / 58 (auto/); ttb 15:05 Pulse 86 MON; Resp 18; Pulse Ox 97% on R/A; Pain 1/10; ttb 15:10 Temp 98.1(TE); Weight 89.81 kg; Height 5 ft. 2 in. (157.48 cm); ttb 16:20 Pulse 84 MON; Pulse Ox 97% ; ttb 16:20 BP 142 / 68 (auto/); ttb 16:35 Pulse 86 MON; Pulse Ox 96% ; ttb 16:35 BP 134 / 61 (auto/); ttb 16:50 Pulse 66 MON; Pulse Ox 97% ; ttb 16:50 BP 151 / 65 (auto/); ttb 17:04 Pulse 66 MON; Pulse Ox 98% ; ttb 17:05 BP 127 / 65 (auto/); ttb 17:20 BP 135 / 73 (auto/); ttb 17:21 Pulse 76 MON; Pulse Ox 96% ; ttb 17:35 BP 138 / 71 (auto/); ttb 17:36 Pulse 80 MON; Pulse Ox 95% ; ttb 17:50 BP 125 / 72 (auto/); ttb 17:50 Pulse 78 MON; Pulse Ox 96% ; ttb 18:05 BP 122 / 70 (auto/); ttb 18:06 Pulse 78 MON; Pulse Ox 96% ; ttb 18:19 Pulse 60 MON; Pulse Ox 97% ; ttb 18:20 BP 150 / 72 (auto/); ttb 18:35 Pulse 66 MON; Pulse Ox 98% ; ttb 18:35 BP 138 / 63 (auto/); ttb 18:49 Pulse 80 MON; Resp 18 S; Temp 98.1(TE); Pulse Ox 98% on R/A; Pain 0/10; ttb 18:50 BP 146 / 70 (auto/); ttb 15:10 Body Mass Index 36.21 (89.81 kg, 157.48 cm) ttb Vitals: 13:40 Log In Time N/A - ambulance arrival. ead ED Course: 13:41 Patient visited by Samantha Cota, Electric Wirer. deg 13:41 Patient moved to Waiting deg 13:42 Eva Cason,RN is Primary Nurse. deg 13:42 Patient moved to 6 deg 13:48 Triage Initiated ead 13:53 The patient / caregiver is instructed regarding the plan of care and ED course. Cardiac ead monitor on. Pulse ox on. NIBP on. 13:55 Patient visited by Betsy Chappell RN. ead 13:59 EKG done. (by ED staff). Reviewed by Lia Garcias MD. rn1 14:37 Wild Flores FNP is PHCP. ke 14:37 Patient visited by Wild Flores FNP. susan 14:37 Patient visited by Wild Flores FNP. ke 15:05 Accompanied by Family Member, Patient has correct armband on for positive ttb identification. Placed in gown. Bed in low position. Call light in reach. Side rails up X2. school lunch monitor on. Pulse ox on. NIBP on. 15:05 Maintain field IV. Dressing intact. Good blood return noted. Site clean & dry. Gauge & ttb site: 20LAC. Labs drawn. (by ED staff). 15:11 Patient visited by Tammi Barillas RN. ttb 15:42 Patient visited by Wild Flores FNP. ke 15:58 Primary Nurse role handed off by Eva Cason RN deg 16:04 EKG-ADULT Returned. EDMS 16:08 Patient visited by Wild Flores FNP. ke 16:44 Patient visited by Wild Flores FNP. ke 17:15 Patient visited by Wild Flores FNP. ke 17:22 [facility] Payment Agreement was scanned into [employer] and attached to record. zo 17:47 Patient visited by Wild Flores FNP. ke 18:01 CARDIAC MARKER PANEL Sent. ttb 18:16 Patient visited by Pratibha Verdin RN. kc3 18:19 EKG done. (by ED staff). Reviewed by Wild SIMPSON. rn1 18:42 Patient visited by Wild Flores FNP. ke 18:45 Dmitriy Del Rosario MD is Referral Physician. ke 19:00 Discontinued IV lock intact, bleeding controlled, pressure dressing applied, No ttb redness/swelling at site. No procedures done that require assistance. 19:04 Patient visited by Fernando Souza PCA. kb5 08/28 11:12 T-Sheet-- Draft Copy was scanned into [employer] and attached to record. gb 11:12 ECG/EKG was scanned into [employer] and attached to record. gb 11:13 Trend VS was scanned into [employer] and attached to record. gb 11:13 Rhythm Strip was scanned into [employer] and attached to record. gb 11:53 portable chest Returned. EDMS 20:49 ECG WITH READING ER PHYS Returned. EDMS Administered Medications: 08/27 15:08 Drug: NS 0.9% 1000 ml [sodium chloride 0.9 % intravenous solution] Route: IV; Rate: 100 ttb mL/hr; Site: left antecubital; 18:00 Follow up: Response: No Adverse Reaction; IV Status: Completed infusion; IV Intake: ttb 1000ml Attachments: 11:13 Trend VS gb 11:13 Rhythm Strip gb Intake: 08/27 18:00 IV: 1000.00ml; Total: 1000.00ml. ttb Order Results: Lab Order: Basic Metabolic Profile; SPEC'M 08/27/16 13:53 Test: GLUCOSE, FASTING; Value: 118; Range: 70-105; Abnormal: Above high normal; Units: MG/DL; Status: F Test: BLOOD UREA NITROGEN; Value: 14; Range: 7-18; Units: MG/DL; Status: F Test: CREATININE FOR GFR; Value: 1.07; Range: 0.55-1.02; Abnormal: Above high normal; Units: MG/DL; Status: F Test: GLOMERULAR FILTRATION RATE; Value: 55.9; Range: >51; Status: F Test: SODIUM LEVEL; Value: 141; Range: 136-145; Units: MEQ/L; Status: F Test: POTASSIUM SERUM; Value: 4.0; Range: 3.5-5.1; Units: MEQ/L; Status: F Test: CHLORIDE LEVEL; Value: 104; Range: 98-107; Units: MEQ/L; Status: F Test: CARBON DIOXIDE LEVEL; Value: 30; Range: 21-32; Units: MEQ/L; Status: F Test: ANION GAP; Value: 7; Range: 8-16; Abnormal: Below low normal; Units: MEQ/L; Status: F Test: CALCIUM LEVEL; Value: 8.8; Range: 8.5-10.1; Units: MG/DL; Status: F Test Note: ; Units are mL/min/1.73 m2 Chronic Kidney Disease Staging per NKF: Stage I & II GFR >=60 Normal to Mildly Decreased Stage III GFR 30-59 Moderately Decreased Stage IV GFR 15-29 Severely Decreased Stage V GFR <15 Very Little GFR Left ESRD GFR <15 on FARM MACHINERY ASSEMBLER Lab Order: CBC with Diff; SPEC'M 08/27/16 13:53 Test: WHITE BLOOD COUNT; Value: 14.7; Range: 4.0-10.0; Abnormal: Above high normal; Units: K/mm3; Status: F Test: RED BLOOD COUNT; Value: 5.14; Range: 4.00-5.40; Units: M/mm3; Status: F Test: HEMOGLOBIN; Value: 14.4; Range: 12.0-16.0; Units: g/dl; Status: F Test: HEMATOCRIT; Value: 42.6; Range: 36.0-47.0; Units: %; Status: F Test: MEAN CORPUSCULAR VOLUME; Value: 82.9; Range: 80.0-96.0; Units: fl; Status: F Test: MEAN CORPUSCULAR HEMOGLOBIN; Value: 28.0; Range: 27.0-33.0; Units: pg; Status: F Test: MEAN CORPUSCULAR HGB CONC; Value: 33.8; Range: 32.0-36.5; Units: g/dl; Status: F Test: RED CELL DISTRIBUTION WIDTH; Value: 12.7; Range: 11.5-14.5; Units: %; Status: F Test: PLATELET COUNT, AUTOMATED; Value: 321; Range: 150-450; Units: k/mm3; Status: F Test: NEUTROPHILS %; Value: 87.9; Range: 36.0-66.0; Abnormal: Above high normal; Units: %; Status: F Test: LYMPH %; Value: 7.4; Range: 24.0-44.0; Abnormal: Below low normal; Units: %; Status: F Test: MONO %; Value: 2.9; Range: 0.0-5.0; Units: %; Status: F Test: EOS %; Value: 0.5; Range: 0.0-3.0; Units: %; Status: F Test: BASO %; Value: 0.6; Range: 0.0-1.0; Units: %; Status: F Test: LARGE UNSTAINED CELL %; Value: 0.6; Range: 0.0-4.0; Units: %; Status: F Test: NEUTROPHILS #; Value: 13.0; Range: 1.8-7.7; Abnormal: Above high normal; Units: K/mm3; Status: F Test: LYMPH #; Value: 1.2; Range: 1.5-4.5; Abnormal: Below low normal; Units: K/mm3; Status: F Test: MONO #; Value: 0.4; Range: 0.0-0.8; Units: K/mm3; Status: F Test: EOS #; Value: 0.1; Range: 0.0-0.50; Units: K/mm3; Status: F Test: BASO #; Value: 0.1; Range: 0.0-0.2; Units: K/mm3; Status: F Test: LARGE UNSTAINED CELL #; Value: 0.1; Range: 0.0-0.4; Units: K/mm3; Status: F Lab Order: Cardiac Injury Profile; SPEC'M 08/27/16 13:53 Test: CPK CREATINE PHOSPHOKINASE; Value: 57; Range: 26-192; Units: U/L; Status: F Test: CK-MB VALUE MASS; Value: 1.0; Range: 0.0-3.6; Units: NG/ML; Status: F Test: MB/CK RELATIVE INDEX; Value: 1.75; Range: < OR =4; Status: F Test Note: ; DIAGNOSIS CRITERIA MMB ng/ml Relative Index (RI) NON-AMI < or = 5 N/A BROOKS ZONE > 5 < or = 4 AMI > 5 > 4 Lab Order: Prothrombin Time Profile\E\INR; SPEC'M 08/27/16 13:53 Test: PROTHROMBIN TIME; Value: 12.4; Range: 12.3-14.5; Units: SECONDS; Status: F Test: INR; Value: 0.91; Status: F Test Note: ; THERAPUTIC HUMAN INR VALUES INDICATIONS NORMAL RANGES PROPHYLAXIS/TREATMENT OF: VENOUS THROMBOSIS 2.0-3.0 PULMONARY EMBOLISM 2.0-3.0 PREVENTION OF SYSTEMIC EMBOLISM FROM: TISSUE HEART VALVES 2.0-3.0 ACUTE MYOCARDIAL INFARCTION 2.0-3.0 VALVULAR HEART DISEASE 2.0-3.0 ATRIAL FIBRILLATION 2.0-3.0 MECHANICAL VALVES(HIGH RISK) 2.5-3.5 RECURRENT MYOCARDIAL INFARCTION 2.5-3.5 Lab Order: Troponin; [facility] 08/27/16 13:53 Test: TROPONIN I; Value: < 0.02; Range: < 0.10; Units: NG/ML; Status: F Test Note: ; Troponin I Reference Interval for [employer] LOCI: 99th Percentile= 0.00-0.045 ng/ml Risk Stratification: <= 0.10 ng/ml Decreased Risk for Adverse Clinical Events. 0.10-1.50 ng/ml Increased Risk for Adverse Clinical Events. Evaluation of additional criterion and/or repeat testing in 2-6 hours is suggested to rule out myocardial damage. >= 1.50 ng/ml Indicative of Myocardial Injury. Lab Order: Lipase; [facility] 08/27/16 13:53 Test: LIPASE; Value: 164; Range: 73-393; Units: U/L; Status: F Lab Order: Amylase; [facility] 08/27/16 13:53 Test: AMYLASE; Value: 71; Range: 25-115; Units: U/L; Status: F Lab Order: Liver Profile; [facility] 08/27/16 13:53 Test: AST/SGOT; Value: 96; Range: 15-37; Abnormal: Above high normal; Units: U/L; Status: F Test: ALT/SGPT; Value: 59; Range: 12-78; Units: U/L; Status: F Test: ALKALINE PHOSPHATASE; Value: 74; Range: 45-117; Units: U/L; Status: F Test: BILIRUBIN,TOTAL; Value: 0.5; Range: 0.2-1.0; Units: MG/DL; Status: F Test: BILIRUBIN,DIRECT; Value: 0.3; Range: 0.0-0.2; Abnormal: Above high normal; Units: MG/DL; Status: F Test: TOTAL PROTEIN; Value: 7.0; Range: 6.4-8.2; Units: GM/DL; Status: F Test: ALBUMIN; Value: 3.8; Range: 3.2-5.2; Units: GM/DL; Status: F Test: ALBUMIN/GLOBULIN RATIO; Value: 1.19; Range: 1.00-1.93; Status: F Lab Order: CARDIAC MARKER PANEL; SPEC'M 08/27/16 17:55 Test: CPK CREATINE PHOSPHOKINASE; Value: 61; Range: 26-192; Units: U/L; Status: F Test: CK-MB VALUE MASS; Value: 1.0; Range: 0.0-3.6; Units: NG/ML; Status: F Test: MB/CK RELATIVE INDEX; Value: 1.63; Range: < OR =4; Status: F Test: TROPONIN I; Value: < 0.02; Range: < 0.10; Units: NG/ML; Status: F Test Note: ; DIAGNOSIS CRITERIA MMB ng/ml Relative Index (RI) NON-AMI < or = 5 N/A BROOKS ZONE > 5 < or = 4 AMI > 5 > 4 Radiology Order: EKG-ADULT Test: EKG-ADULT REASON FOR EXAMINATION: Chest Pain; Stationary ECG Study; [facility] - ED; ; Test Date: 2016-08-27; Pat Name: AUTUMN BENITES Department:; Room: -; Gender: F Mail Reader: rn; : 1955 Requested By: LIA Marin; Order Number: [id number] Reading MD: Manju Self; Measurements; Intervals [place]; Rate: 94 P: 43; UT: 150 QRS: -1; QRSD: 93 T: 44; QT: 364; QTc: 457; Interpretive Statements; SINUS RHYTHM; NONSPECIFIC ST T-WAVE ABNORMALITY; NO PRIOR FOR COMPARISON; Electronically Signed On 08-27-2016 15:52:39 EST by Manju Self; Radiology Order: portable chest Test: portable chest REASON FOR EXAMINATION: Chest Pain; Portable chest, single AP view:; ; The lung becerra are clear. The cardiac size is normal; ; The ayala, mediastinum, and bony thorax are unremarkable.; ; Impression:; ; Negative portable chest.; ; ; Signed by; Reji Brunson MD 08/27/2016 03:25 P; Radiology Order: ECG WITH READING ER PHYS Test: ECG WITH READING ER PHYS REASON FOR EXAMINATION: CHEST PAIN; Stationary ECG Study; [facility] - ED; ; Test Date: 2016-08-27; Pat Name: AUTUMN BENITES Department:; Room: -; Gender: F Mail Reader: [email or web address]; : 1955 Requested By: WILD SIMPSON; Order Number: [id number] Reading MD: Manju Self; Measurements; Intervals [place]; Rate: 65 P: 1; UT: 148 QRS: 3; QRSD: 90 T: 18; QT: 416; QTc: 434; Interpretive Statements; SINUS RHYTHM; NSTTW ABNORMALITY; DECREASED RATE 08/27/16 13:57; Electronically Signed On 08-28-2016 20:46:09 EST by Manju Self; Outcome: 18:46 Discharge ordered by Provider. ke 19:00 Discharge Assessment: Patient awake, alert and oriented x 3. No cognitive and/or ttb functional deficits noted. Patient verbalized understanding of disposition instructions. Patient awake and alert. patient administered narcotics - no. The following High Risk Discharge criteria are identified: None. Discharged to home ambulatory, with family. Condition: good Condition: stable Condition: improved. Discharge instructions given to patient, family, Instructed on discharge instructions, follow up and referral plans. medication usage, Demonstrated understanding of instructions, medications, Pt was receptive of discharge instructions/ teaching. Prescriptions given X 1. No special radiology studies were completed. Property :Personal belongings accompany Pt. 19:08 Patient left the ED. ttb Signatures: Dispatcher [employer] EDSamantha Olsen, Electric Wirer Unit deg Joy Angelo, Wild Valdez, TATIANA [employer] BOOK WRITERNora Reddy Kristopher, TRANSPORTATION CONSULTANT TRANSPORTATION CONSULTANT kb5 Tammi Barillas, MIGUE RN ttb Betsy Chappell,MIGUE RN Lobito Mccarthy rn1 Pratibha Verdin,MIGUE RN kc3 Chart Complete MTDD
== END 2016-08-27 19:08 | disposition home or self-care (01) ==
LOC: M ED 13:40
DX: R07.89 Other chest pain (principal); Z87.891 Personal history of nicotine dependence

== ENCOUNTER → 2017-11-13 | Outpatient (REF) | payer OTHER ==
[2017-11-13 11:34] LABS: ALBUMIN 3.9 GM/DL (3.2-5.2); ALBUMIN/GLOBULIN RATIO 1.11 (1.00-1.93); ALKALINE PHOSPHATASE 68 U/L (45-117); ALT/SGPT 16 U/L (12-78); ANION GAP 4 MEQ/L (8-16); AST/SGOT 12 U/L (7-37); BILIRUBIN,TOTAL 0.9 MG/DL (0.2-1.0); BLOOD UREA NITROGEN 11 MG/DL (7-18); CALCIUM LEVEL 9.1 MG/DL (8.8-10.2); CARBON DIOXIDE LEVEL 32 MEQ/L (21-32); CHLORIDE LEVEL 107 MEQ/L (98-107); CHOLESTEROL LEVEL 235 MG/DL (<200); CREATININE FOR GFR 0.86 MG/DL (0.55-1.30); GLOMERULAR FILTRATION RATE > 60.0 (>45); GLUCOSE, FASTING 110 MG/DL (70-100); HDL CHOLESTEROL 66 MG/DL (>40); LDL CHOLESTEROL 152.4 MG/DL (<100); NON-HDL-C 169 MG/DL; POTASSIUM SERUM 4.2 MEQ/L (3.5-5.1); SODIUM LEVEL 143 MEQ/L (136-145); TOTAL PROTEIN 7.4 GM/DL (6.4-8.2); TRIGLYCERIDES LEVEL 83 MG/DL (<150)
== END ==
LOC: M SFHCCLAY 07:08
DX: E78.2 Mixed hyperlipidemia (principal)
CPT/HCPCS: 80053

== ENCOUNTER → 2018-12-21 | Outpatient (CLI) | payer OTHER ==
--- NOTE | 2018-12-24 10:59 | REP ---
MRI RIGHT ELBOW: TECHNIQUE: Multiple sequences in the axial, coronal and sagittal planes. At the site of the palpable lump in the antecubital region, there is an oval area of fat which measures 6.6 x 2.1 x 2.0 cm consistent with lipoma. No abnormal soft tissue component is seen within this region. No other definite soft tissue signal abnormality is seen. The underlying bones demonstrate normal marrow signal with no bone marrow edema or occult fracture. The biceps, triceps, brachialis and brachial radialis appear intact. Medial and lateral collateral ligaments appear intact. There is no definite abnormal signal in the common flexor or extensor tendons with no evidence of medial or lateral humeral epicondylitis. There is a normal amount of joint fluid. IMPRESSION: At the site of the palpable lump, there is an oval area of fat most consistent with a simple lipoma, measuring 6.6 x 2.1 x 3.0 cm. Electronically Signed by Reji Sharma MD 12/24/2018 11:06 A
== END ==
LOC: M RAD 14:35
PROVIDERS: ATTEND Orthopaedic Surgery Sports Medicine
DX: R22.31 Localized swelling, mass and lump, right upper limb (principal)

== ENCOUNTER → 2019-02-11 | Outpatient (REF) | payer OTHER ==
[2019-02-11 13:02] LABS: BASO # 0.1 10^3/uL (0.0-0.2); BASO % 1.2 % (0.0-1.0); EOS # 0.3 10^3/uL (0.0-0.50); EOS % 4.8 % (0.0-3.0); HEMOGLOBIN 13.7 g/dl (12.0-15.5); LYMPH % 30.3 % (24.0-44.0); MEAN CORPUSCULAR HGB CONC 32.6 g/dl (32.0-36.5); MEAN CORPUSCULAR VOLUME 85.9 fl (80.0-96.0); MONO # 0.5 10^3/uL (0.0-0.8); MONO % 7.3 % (0.0-5.0); NEUTROPHILS # 3.6 10^3/uL (1.8-7.7); NEUTROPHILS % 56.2 % (36.0-66.0); PLATELET COUNT, AUTOMATED 337 10^3/uL (150-450); RED BLOOD COUNT 4.89 10^6/uL (4.00-5.40); WHITE BLOOD COUNT 6.5 10^3/uL (4.0-10.0)
[2019-02-11 13:20] LABS: ALBUMIN 3.6 GM/DL (3.2-5.2); ALT/SGPT 17 U/L (12-78); BILIRUBIN,TOTAL 0.5 MG/DL (0.2-1.0); BLOOD UREA NITROGEN 13 MG/DL (7-18); CALCIUM LEVEL 8.9 MG/DL (8.8-10.2); CARBON DIOXIDE LEVEL 32 MEQ/L (21-32); CHLORIDE LEVEL 107 MEQ/L (98-107); CREATININE FOR GFR 0.88 MG/DL (0.55-1.30); GLOMERULAR FILTRATION RATE > 60.0 (>45); GLUCOSE, FASTING 106 MG/DL (70-100); POTASSIUM SERUM 4.3 MEQ/L (3.5-5.1); SODIUM LEVEL 143 MEQ/L (136-145); TOTAL PROTEIN 6.9 GM/DL (6.4-8.2)
== END ==
LOC: M SFHCCLAY 07:12
PROVIDERS: ATTEND Family Medicine
DX: R22.31 Localized swelling, mass and lump, right upper limb (principal); I10 Essential (primary) hypertension; Z01.818 Encounter for other preprocedural examination

== ENCOUNTER → 2019-04-03 | Outpatient (CLI) | payer OTHER ==
--- NOTE | 2019-04-03 14:22 | REP ---
Clinical: Cough . Comparison: 03/22/2010 . Technique: PA and lateral. Findings: The mediastinum and cardiac silhouette are normal. The lung becerra are clear and without acute consolidation, effusion, or pneumothorax. The skeletal structures are intact and normal. Impression: 1. No acute cardiopulmonary process. Electronically Signed by Larry Hurd MD 04/03/2019 02:13 P
== END ==
LOC: M CLY 13:46
PROVIDERS: ATTEND Family Medicine
DX: R05 Cough (principal)

== ENCOUNTER → 2019-05-22 | Outpatient (CLI) | payer OTHER ==
--- NOTE | 2019-05-22 09:46 | REP ---
Two-view chest: 05/22/2019. Indication: Cough. Comparison: 04/03/2019. Findings: There is a new small air space consolidation of the left lower lobe. There is no pleural effusion or pneumothorax. The cardiomediastinal silhouette is unremarkable. Impression: Left lower lobe pneumonia. Electronically Signed by Ej Márquez DO 05/22/2019 09:37 A
== END ==
LOC: M CLY 08:44
PROVIDERS: ATTEND Family Medicine
DX: R05 Cough (principal)

== ENCOUNTER → 2019-05-26 | Outpatient (CLI) | payer OTHER ==
--- NOTE | 2019-05-26 14:06 | REP ---
Clinical: Left lower lobe pneumonia . Comparison: 05/22/2019 . Technique: PA and lateral. Findings: The mediastinum and cardiac silhouette are normal. The lung becerra are clear and without acute consolidation, effusion, or pneumothorax. Previous left lower lobe infiltrate resolved. The skeletal structures are intact and normal. Impression: 1. No acute cardiopulmonary process. Electronically Signed by Larry Hurd MD 05/26/2019 01:56 P
== END ==
LOC: M CLY 13:42
PROVIDERS: ATTEND Family Medicine
DX: J18.1 Lobar pneumonia, unspecified organism (principal)

== ENCOUNTER → 2019-06-09 | Outpatient (CLI) | payer OTHER ==
--- NOTE | 2019-06-09 16:10 | REP ---
Two-view chest: 06/09/2019. Indication: Cough. Comparison: 05/26/2019. Findings: The lungs are clear. There is no pleural effusion or pneumothorax. The cardiac silhouette is not enlarged. Impression: Clear lungs. Electronically Signed by Ej Márquez DO 06/09/2019 04:02 P
== END ==
LOC: M CLY 15:48
PROVIDERS: ATTEND Family Medicine
DX: R05 Cough (principal)

== ENCOUNTER → 2019-07-24 | Outpatient (CLI) | payer OTHER ==
--- NOTE | 2019-07-24 15:27 | REPMRS ---
Patient History The patient states she has not had a clinical breast exam in over a year. Family history of breast cancer under age 50 in maternal cousin, endometrial cancer in maternal aunt. 3D TOMOSYNTHESIS WAS PERFORMED. [facility] lifetime risk for [facility] cancer is 5.8%. Digital Woman Screen Mammo: July 24, 2019 - Exam #: [id number] Bilateral CC and MLO view(s) were taken. Technologist: Aura Lyon, Technologist Prior study comparison: August 23, 2016, digital woman screen mammo performed at [facility]. August 05, 2015, digital woman screen mammo performed at [facility]. FINDINGS: There are scattered fibroglandular densities. There has been no change in the appearance of the mammogram from the prior studies. There is a mild amount of residual fibroglandular tissue which is fairly symmetric. There is no interval development of dominant mass, architectural distortion, or clustered microcalcification suggestive of malignancy. Assessment: BI-RADS/ACR category 1 mammogram. Negative Mammogram. Recommendation Routine screening mammogram in 1 year (for women over age 40). This mammogram was interpreted with the aid of an FDA-approved computer-aided dectection system. Electronically Signed By: Reji Sharma MD 07/24/19 [id number]
== END ==
LOC: M WHC 14:53
PROVIDERS: ATTEND Family Medicine
DX: Z12.31 Encounter for screening mammogram for malignant neoplasm of breast (principal)

== ENCOUNTER → 2020-04-26 | Outpatient (REF) | payer OTHER ==
[2020-04-26 13:05] LABS: ALBUMIN 3.3 GM/DL (3.2-5.2); ALT/SGPT 21 U/L (12-78); BILIRUBIN,TOTAL 0.5 MG/DL (0.2-1.0); BLOOD UREA NITROGEN 16 MG/DL (7-18); CALCIUM LEVEL 8.6 MG/DL (8.8-10.2); CARBON DIOXIDE LEVEL 29 MEQ/L (21-32); CHLORIDE LEVEL 109 MEQ/L (98-107); CHOLESTEROL LEVEL 180 MG/DL (<200); CREATININE FOR GFR 0.84 MG/DL (0.55-1.30); GLOMERULAR FILTRATION RATE > 60.0 (>45); GLUCOSE, FASTING 95 MG/DL (70-100); HDL CHOLESTEROL 60 MG/DL (>40); LDL CHOLESTEROL 109 MG/DL (<100); NON-HDL-C 120 MG/DL; POTASSIUM SERUM 4.2 MEQ/L (3.5-5.1); SODIUM LEVEL 142 MEQ/L (136-145); TOTAL PROTEIN 6.4 GM/DL (6.4-8.2); TRIGLYCERIDES LEVEL 55 MG/DL (<150)
[2020-04-26 13:34] LABS: HEMOGLOBIN A1c 5.6 %
== END ==
LOC: M SFHCCLAY 11:13
PROVIDERS: ATTEND Family Medicine
DX: E78.2 Mixed hyperlipidemia (principal); E11.9 Type 2 diabetes mellitus without complications

== ENCOUNTER → 2020-08-19 | Outpatient (CLI) | payer OTHER ==
--- NOTE | 2020-08-19 15:12 | REPMRS ---
Patient History The patient states she has not had a clinical breast exam in over a year. Family history of breast cancer under age 50 in maternal cousin, endometrial cancer in maternal aunt. 3D TOMOSYNTHESIS WAS PERFORMED. The Mahad Caro lifetime risk for breast cancer is 5.6%. Volpara breast density b. Digital Woman Screen Mammo: August 19, 2020 - Exam #: [id number] Bilateral CC and MLO view(s) were taken. Technologist: Maribel Craig, Technologist Prior study comparison: July 24, 2019, bilateral digital woman screen mammo performed at [facility]. August 23, 2016, digital woman screen mammo performed at [facility]. FINDINGS: There are scattered fibroglandular densities. There has been no change in the appearance of the mammogram from the prior studies. There is a mild amount of residual fibroglandular tissue which is fairly symmetric. There is no interval development of dominant mass, architectural distortion, or clustered microcalcification suggestive of malignancy. Assessment: BI-RADS/ACR category 1 mammogram. Negative Mammogram. Recommendation Routine screening mammogram in 1 year (for women over age 40). This mammogram was interpreted with the aid of an FDA-approved computer-aided dectection system. Electronically Signed By: Reji Sharma MD 08/19/20 1521
== END ==
LOC: M WHC 13:44
PROVIDERS: ATTEND Family Medicine
DX: Z12.31 Encounter for screening mammogram for malignant neoplasm of breast (principal)

== ENCOUNTER → 2020-12-08 | Outpatient (REF) | payer OTHER ==
[2020-12-09 11:52] LABS: BASO # 0.1 10^3/uL (0.0-0.2); EOS # 0.3 10^3/uL (0.0-0.5); HEMATOCRIT 42.6 % (36.0-47.0); HEMOGLOBIN 13.5 g/dl (12.0-15.5); LYMPH # 2.1 10^3/uL (1.5-5.0); LYMPH % 22.9 % (24.0-44.0); MEAN CORPUSCULAR HEMOGLOBIN 27.6 pg (27.0-33.0); MEAN CORPUSCULAR HGB CONC 31.7 g/dl (32.0-36.5); MEAN CORPUSCULAR VOLUME 86.9 fl (80.0-96.0); MONO # 0.6 10^3/uL (0.0-0.8); MONO % 6.4 % (2.0-8.0); NEUTROPHILS # 6.1 10^3/uL (1.5-8.5); NEUTROPHILS % 66.3 % (36.0-66.0); PLATELET COUNT, AUTOMATED 348 10^3/uL (150-450); WHITE BLOOD COUNT 9.2 10^3/uL (4.0-10.0)
[2020-12-09 12:20] LABS: ALBUMIN 3.6 GM/DL (3.2-5.2); ALT/SGPT 18 U/L (12-78); BILIRUBIN,TOTAL 0.3 MG/DL (0.2-1.0); BLOOD UREA NITROGEN 15 MG/DL (7-18); C REACTIVE PROTEIN QUANTITATIV 0.86 MG/DL (0.00-0.30); CALCIUM LEVEL 9.3 MG/DL (8.8-10.2); CARBON DIOXIDE LEVEL 31 MEQ/L (21-32); CHLORIDE LEVEL 106 MEQ/L (98-107); CREATININE FOR GFR 0.85 MG/DL (0.55-1.30); GLOMERULAR FILTRATION RATE > 60.0 (>45); GLUCOSE, FASTING 88 MG/DL (70-100); POTASSIUM SERUM 4.6 MEQ/L (3.5-5.1); RHEUMATOID FACTOR QUANT < 10.0 IU/ML (<15.0); SODIUM LEVEL 140 MEQ/L (136-145); TOTAL PROTEIN 6.8 GM/DL (6.4-8.2)
[2020-12-09 12:31] LABS: ERYTHROCYTE SEDIMENTATION RATE 21 mm/hr (0-30)
== END ==
LOC: M SFHCCLAY 15:15
PROVIDERS: ATTEND Physician Assistant
DX: M25.50 Pain in unspecified joint (principal)

== ENCOUNTER → 2021-06-30 | Outpatient (REF) | payer OTHER | LOC: M SFHCRHEU 10:00 | PROVIDERS: ATTEND Internal Medicine | DX: R79.82 Elevated C-reactive protein (CRP) (principal); R79.89 Other specified abnormal findings of blood chemistry ==

== ENCOUNTER → 2021-07-04 | Outpatient (CLI) | payer OTHER ==
--- NOTE | 2021-07-04 09:18 | REP ---
INDICATION: M19.049 OSTEOARTHRITS COMPARISON: None. TECHNIQUE: AP, lateral, bilateral oblique views right and left hand. FINDINGS: Osseous structures, joint spaces, and surrounding soft tissues are relatively age-appropriate, symmetric and within normal limits. Subtle findings include periarticular sclerosis with very minimal joint space narrowing primarily involving the interphalangeal joints. No further significant overt osteoarthritic degenerative changes are appreciated. No evidence for acute fracture or dislocation. IMPRESSION: Symmetric essentially age-appropriate bilateral hand radiographs. <Electronically signed by Larry Hurd > 07/04/21 0992
== END ==
LOC: M CLY 08:46
PROVIDERS: ATTEND Internal Medicine
DX: M19.049 Primary osteoarthritis, unspecified hand (principal)

== ENCOUNTER → 2022-03-06 | Outpatient (REF) | payer OTHER, MEDICAID | LOC: M SFHCRHEU 10:51 | PROVIDERS: ATTEND Internal Medicine | DX: R79.82 Elevated C-reactive protein (CRP) (principal) ==

== ENCOUNTER → 2022-05-23 | Outpatient (CLI) | payer MEDICAID, MEDICARE | LOC: M WHC 08:48 | PROVIDERS: ATTEND Family Medicine | DX: Z12.31 Encounter for screening mammogram for malignant neoplasm of breast (principal) ==

== ENCOUNTER → 2023-11-26 | Outpatient (REF) | payer MEDICARE, MEDICAID ==
[2023-11-26 12:34] LABS: HEMATOCRIT 43.6 % (36.0-47.0); HEMOGLOBIN 14.1 g/dl (12.0-15.5); MEAN CORPUSCULAR HEMOGLOBIN 28.6 pg (27.0-33.0); MEAN CORPUSCULAR HGB CONC 32.3 g/dl (32.0-36.5); MEAN CORPUSCULAR VOLUME 88.4 fl (80.0-96.0); PLATELET COUNT, AUTOMATED 348 10^3/uL (150-450); RED BLOOD COUNT 4.93 10^6/uL (4.00-5.40); WHITE BLOOD COUNT 5.4 10^3/uL (4.0-10.0)
[2023-11-26 12:37] LABS: ALBUMIN 3.2 G/DL (3.2-5.2); ALKALINE PHOSPHATASE 64 U/L (46-116); ALT/SGPT 10 U/L (7.0-40); AST/SGOT 13 U/L (<34); BILIRUBIN,TOTAL 0.6 MG/DL (0.3-1.2); BLOOD UREA NITROGEN 11 MG/DL (9-23); CALCIUM LEVEL 8.5 MG/DL (8.3-10.6); CARBON DIOXIDE LEVEL 31 MMOL/L (20-31); CHLORIDE LEVEL 106 MMOL/L (98-107); CHOLESTEROL LEVEL 197 MG/DL (<200); CHOLESTEROL RISK RATIO 3.56 (<5); CREATININE FOR GFR 0.84 MG/DL (0.55-1.30); GLOMERULAR FILTRATION RATE > 60.0 (>45); GLUCOSE, FASTING 149 MG/DL (74-106); HDL CHOLESTEROL 55.3 MG/DL (>40); LDL CHOLESTEROL 121.3 MG/DL (<100); NON-HDL-C 141.7 MG/DL; POTASSIUM SERUM 4.3 MMOL/L (3.5-5.1); SODIUM LEVEL 143 MMOL/L (136-145); TOTAL PROTEIN 6.3 G/DL (5.7-8.2); TRIGLYCERIDES LEVEL 102 MG/DL (<150)
[2023-11-26 13:18] LABS: HEMOGLOBIN A1c 5.4 % (4.0-6.0)
== END ==
LOC: M SFHCCLAY 09:12
PROVIDERS: ATTEND Family Medicine
DX: E78.2 Mixed hyperlipidemia (principal); R73.01 Impaired fasting glucose; R03.0 Elevated blood-pressure reading, without diagnosis of hypertension

== ENCOUNTER → 2024-01-15 | Outpatient (REF) | payer MEDICARE, MEDICAID ==
[2024-01-15 19:13] LABS: BASO # 0.1 10^3/uL (0.0-0.2); BASO % 0.7 % (0.0-1.0); EOS % 0.5 % (0.0-3.0); HEMATOCRIT 44.6 % (36.0-47.0); HEMOGLOBIN 14.6 g/dl (12.0-15.5); LYMPH # 1.9 10^3/uL (1.5-5.0); LYMPH % 21.8 % (24.0-44.0); MEAN CORPUSCULAR HGB CONC 32.7 g/dl (32.0-36.5); MEAN CORPUSCULAR VOLUME 85.4 fl (80.0-96.0); MONO # 0.5 10^3/uL (0.0-0.8); MONO % 6.2 % (2.0-8.0); NEUTROPHILS % 70.4 % (36.0-66.0); PLATELET COUNT, AUTOMATED 327 10^3/uL (150-450); RED BLOOD COUNT 5.22 10^6/uL (4.00-5.40); WHITE BLOOD COUNT 8.5 10^3/uL (4.0-10.0)
[2024-01-15 19:40] LABS: ALBUMIN 3.9 G/DL (3.2-5.2); ALKALINE PHOSPHATASE 72 U/L (46-116); ALT/SGPT 13 U/L (7.0-40); AST/SGOT 11 U/L (<34); BILIRUBIN,TOTAL 0.7 MG/DL (0.3-1.2); BLOOD UREA NITROGEN 13 MG/DL (9-23); CALCIUM LEVEL 9.7 MG/DL (8.3-10.6); CARBON DIOXIDE LEVEL 31 MMOL/L (20-31); CHLORIDE LEVEL 103 MMOL/L (98-107); CREATININE FOR GFR 0.91 MG/DL (0.55-1.30); GLOMERULAR FILTRATION RATE > 60.0 (>45); GLUCOSE, FASTING 97 MG/DL (74-106); POTASSIUM SERUM 5.3 MMOL/L (3.5-5.1); SODIUM LEVEL 137 MMOL/L (136-145); THYROID STIMULATING HORMONE 1.834 uIU/ML (0.55-4.78); TOTAL PROTEIN 6.9 G/DL (5.7-8.2)
[2024-01-18 18:27] LABS: LYME TOTAL ANTIBODY CIA <= 0.90 Index (<=0.90)
== END ==
LOC: M SFHCCLAY 09:31
PROVIDERS: ATTEND Physician Assistant
DX: R06.09 Other forms of dyspnea (principal)

== ENCOUNTER → 2024-01-22 | Outpatient (CLI) | payer MEDICAID, MEDICARE | LOC: M CARPUL 09:38 | PROVIDERS: ATTEND Physician Assistant | DX: R06.09 Other forms of dyspnea (principal) ==

== ENCOUNTER → 2024-02-18 | Outpatient (CLI) | payer MEDICARE ==
[2024-02-18 12:03] LABS: BASO % 0.6 % (0.0-1.0); EOS % 0.4 % (0.0-3.0); HEMATOCRIT 42.1 % (36.0-47.0); HEMOGLOBIN 13.6 g/dl (12.0-15.5); LYMPH # 1.5 10^3/uL (1.5-5.0); LYMPH % 22.8 % (24.0-44.0); MEAN CORPUSCULAR HEMOGLOBIN 28.2 pg (27.0-33.0); MEAN CORPUSCULAR HGB CONC 32.3 g/dl (32.0-36.5); MEAN CORPUSCULAR VOLUME 87.2 fl (80.0-96.0); MONO # 0.5 10^3/uL (0.0-0.8); NEUTROPHILS # 4.6 10^3/uL (1.5-8.5); NEUTROPHILS % 67.8 % (36.0-66.0); PLATELET COUNT, AUTOMATED 332 10^3/uL (150-450); RED BLOOD COUNT 4.83 10^6/uL (4.00-5.40); WHITE BLOOD COUNT 6.8 10^3/uL (4.0-10.0)
== END ==
LOC: M WUC 08:26
PROVIDERS: ATTEND Nurse Practitioner Family
DX: M79.10 Myalgia, unspecified site (principal); M25.569 Pain in unspecified knee

== ENCOUNTER → 2024-05-29 | Outpatient (CLI) | payer MEDICARE, MEDICAID | LOC: M CLY 13:43 | PROVIDERS: ATTEND Physician Assistant | DX: M77.31 Calcaneal spur, right foot (principal) ==

== ENCOUNTER → 2024-05-29 | Outpatient (CLI) | payer MEDICARE, MEDICAID | LOC: M CLY 13:31 | PROVIDERS: ATTEND Physician Assistant | DX: M79.671 Pain in right foot (principal) ==